=== PATIENT | male | born 1985 | race American Indian/Alaskan Native ===

== ENCOUNTER 2016-07-20 09:55 | Emergency (ER) | payer BC ==
[2016-07-20 10:04] VITALS: TEMP 97.8; O2SAT 98
--- NOTE | 2016-07-20 10:06 | C.PDOC ---
History Of Present Illness A 31 year old male presents to the ER c/o bilateral knee pain for a while now. Patient notes that the pain is sharp and intermittent that is a 6/10 and usually shifts from knee to knee or is bilateral. Patient denies headaches, fever, chills, nausea, vomiting, trauma, or any other complaints. Patient is here for X-Rays of his knees. Time Seen by Provider: 07/20/16 10:02 Chief Complaint (Nursing): Lower Extremity Problem/Injury History Per: Patient History/Exam Limitations: no limitations Onset/Duration Of Symptoms: Days Current Symptoms Are (Timing): Still Present Severity: Mild Pain Scale Rating Of: 6 Recent travel outside of the [place]: No Additional History Per: Patient Past Medical History Reviewed: Historical Data, Nursing Documentation, Vital Signs Vital Signs: Last Vital Signs Temp 97.8 F 07/20/16 10:01 Pulse 61 07/20/16 10:01 Resp 18 07/20/16 10:01 BP 132/73 07/20/16 10:01 Pulse Ox 98 07/20/16 10:51 Family History: States: Unknown Family Hx - Social History Hx Tobacco Use: No Hx Alcohol Use: No Hx Substance Use: No - Immunization History Hx Tetanus Toxoid Vaccination: No Hx Influenza Vaccination: No Hx Pneumococcal Vaccination: No Review Of Systems Except As Marked, All Systems Reviewed And Found Negative. Constitutional: Negative for: Fever, Chills, Other (Trauma) Gastrointestinal: Negative for: Nausea, Vomiting Musculoskeletal: Positive for: Leg Pain (Bilateral knee pain) Neurological: Negative for: Headache Physical Exam - Physical Exam Appears: Non-toxic, No Acute Distress Skin: Warm, Dry Head: Atraumatic, Normacephalic Eye(s): bilateral: Normal Inspection Cardiovascular: Rhythm Regular, No Murmur Respiratory: Normal Breath Sounds, No Rales, No Rhonchi, No Wheezing Extremity: Normal ROM, No Pedal Edema, No Deformity, No Swelling Neurological/Psych: Oriented x3, Normal Speech, Normal Cognition Gait: Steady ED Course And Treatment O2 Sat by Pulse Oximetry: 98 (RA) Pulse Ox Interpretation: Normal Medical Decision Making Medical Decision Making: Impression: 31 y/o c/o bilateral knee pain for a while Plans: -X-Ray of bilateral knee -Tylenol -Motrin -Reassess and disposition Disposition Counseled Patient/Family Regarding: Studies Performed, Diagnosis, Need For Followup, Rx Given - Disposition Referrals: Min Hopson DO [Primary Care Provider] - Disposition: HOME/ ROUTINE Disposition Time: 10:42 Condition: STABLE Prescriptions: Ibuprofen [Motrin] 600 mg PO TID #15 tab Instructions: Knee Pain (ED), RICE Therapy (ED) Forms: General Discharge Instructions - POA Present On Arrival: None - Clinical Impression Clinical Impression: Joint pain - Scribe Statement The provider has reviewed the documentation as recorded by the Scribe Renny burrell All medical record entries made by the Vimalibe were at my direction and personally dictated by me. I have reviewed the chart and agree that the record accurately reflects my personal performance of the history, physical exam, medical decision making, and the department course for this patient. I have also personally directed, reviewed, and agree with the discharge instructions and disposition.
[2016-07-20 11:08] VITALS: BP 129/75; PULSE 64; RESP 17
--- NOTE | 2016-07-20 11:37 | RAD ---
PROCEDURE: Bilateral Knee Radiographs. HISTORY: Bilateral knee pain 2 weeks duration. COMPARISON: None. FINDINGS: BONES: Right Knee: Normal. No fracture. Left Knee: Normal. No fracture. JOINTS: Right Knee: Normal. No osteoarthritis. Left knee: Normal. No osteoarthritis. SOFT TISSUES: Right Knee: Normal. Left Knee: Normal. JOINT EFFUSION: Right Knee: None. Left Knee: None. OTHER FINDINGS: None. IMPRESSION: No acute findings related to/accounting for the clinical presentation.
== END 2016-07-20 11:07 | disposition home or self-care (01) ==
LOC: C.ER 09:55 → SUPCPDRO 09:55 → C.ER 11:07
DX: M25.562 Pain in left knee (principal); M25.561 Pain in right knee

== ENCOUNTER 2017-01-31 13:36 | Emergency (ER) | payer BC ==
[2017-01-31 13:45] VITALS: RESP 18; TEMP 97.9
--- NOTE | 2017-01-31 14:53 | C.PDOC ---
History Of Present Illness 31 y/o male, with PMHx of childhood asthma, presents to ED for evaluation of persistent non-productive, "barking" cough for the past 2 weeks. Patient has been using OTC Robitussin without improvement. Pt admits to nasal congestion for the past several days. He denies shortness of breath, wheezing, fever, or sore throat. Patient denies history of smoking. Time Seen by Provider: 01/31/17 13:47 Chief Complaint (Nursing): Cough, Cold, Congestion History Per: Patient History/Exam Limitations: no limitations Onset/Duration Of Symptoms: Days Current Symptoms Are (Timing): Still Present Location Of Pain: None Sick Contacts (Context): None Associated Symptoms: Cough, Nasal Congestion. denies: Sore Throat, Neck Pain, Sinus Drainage Ear Symptoms: Bilateral: None Severity: Mild Additional History Per: Patient Past Medical History Reviewed: Historical Data, Nursing Documentation, Vital Signs Vital Signs: Last Vital Signs Temp 97.9 F 01/31/17 13:41 Pulse 75 01/31/17 15:18 Resp 18 01/31/17 15:18 BP 126/72 01/31/17 15:18 Pulse Ox 98 01/31/17 15:18 - Medical History PMH: Hypercholesterolemia, Migraine Family History: States: No Known Family Hx - Social History Hx Tobacco Use: No Hx Alcohol Use: No Hx Substance Use: No - Immunization History Hx Tetanus Toxoid Vaccination: No Hx Influenza Vaccination: No Hx Pneumococcal Vaccination: No Review Of Systems Except As Marked, All Systems Reviewed And Found Negative. Constitutional: Negative for: Fever, Chills ENT: Positive for: Nose Congestion. Negative for: Nose Discharge, Throat Pain Respiratory: Positive for: Cough. Negative for: Shortness of Breath, Sputum, Wheezing Skin: Negative for: Rash Physical Exam - Physical Exam Appears: Well, Non-toxic, No Acute Distress Skin: Normal Color, Warm, Dry Head: Normacephalic Eye(s): bilateral: Normal Inspection Ear(s): Bilateral: Normal Nose: Normal Oral Mucosa: Moist Throat: Normal, No Erythema, No Exudate, No Drooling Neck: Normal ROM, Supple Cardiovascular: Rhythm Regular, No Murmur Respiratory: Normal Breath Sounds, No Rales, No Rhonchi, No Wheezing, Other ( speaking in full sentences) Gastrointestinal/Abdominal: Normal Exam, Bowel Sounds, Soft, No Tenderness Extremity: Normal ROM Neurological/Psych: Oriented x3 ED Course And Treatment O2 Sat by Pulse Oximetry: 96 (RA) Pulse Ox Interpretation: Normal - Radiology CXR: Interpreted by Me, Viewed By Me CXR Interpretation: Yes: No Acute Disease. No: Infiltrates, Other (no effusion) Progress Note: CXR ordered and reviewed. Pt was given PO Prednisone. Reevaluation Time: 15:15 Reassessment Condition: Improved (Patient reassessed, is resting comfortably, in no distress. Cough has improved, CXR (-) for infiltrates. Patient is well appearing, with nrormal vitals, and he is comfortable being discharged. Rxs given for Prednisone, Tessalon and albuterol inhaler. Patient instructed to follow up with PMD/clinic in 1-2 days. He understands he should return to ED if symptoms worsen.) Disposition Counseled Patient/Family Regarding: Studies Performed, Diagnosis, Need For Followup, Rx Given - Disposition Referrals: Min Hopson DO [Staff Provider] - Disposition: HOME/ ROUTINE Disposition Time: 15:15 Condition: STABLE Additional Instructions: FOLLOW UP WITH YOUR DOCTOR IN 1-2 DAYS USE MEDICATIONS DIRECTED RETURN TO ER IF SYMPTOMS WORSEN Prescriptions: Albuterol HFA [Ventolin HFA 90 mcg/actuation (8 g)] 0.09 mg IH Q4 PRN #1 puff PRN Reason: Wheezing Benzonatate [Tessalon Perles] 100 mg PO BID PRN #15 sgl PRN Reason: Cough predniSONE [predniSONE Tab] 40 mg PO DAILY #6 tab Instructions: Bronchospasm (ED) Forms: Attune RTD (Portuguese) Print Language: SOUTH AFRICAN - POA Present On Arrival: None - Clinical Impression Clinical Impression: Bronchospasm, Bronchitis - Scribe Statement The provider has reviewed the documentation as recorded by the Vimalibleticia Camejo All medical record entries made by the Eliseo were at my direction and personally dictated by me. I have reviewed the chart and agree that the record accurately reflects my personal performance of the history, physical exam, medical decision making, and the department course for this patient. I have also personally directed, reviewed, and agree with the discharge instructions and disposition.
--- NOTE | 2017-01-31 15:03 | RAD ---
HISTORY: PERSISTENT COUGH COMPARISON: No prior. TECHNIQUE: Chest PA and lateral FINDINGS: LUNGS: Mild patchy increased markings in the right infrahilar region. Clinical correlation. PLEURA: No significant pleural effusion identified. No pneumothorax apparent. CARDIOVASCULAR: Normal. OSSEOUS STRUCTURES: No significant abnormalities. VISUALIZED UPPER ABDOMEN: Normal. OTHER FINDINGS: None. IMPRESSION: Mild patchy increased markings in the right infrahilar region. Clinical correlation.
[2017-01-31 15:18] VITALS: BP 126/72; PULSE 75
[2017-02-05 15:12] VITALS: O2SAT 96
== END 2017-01-31 15:19 | disposition home or self-care (01) ==
LOC: C.ER 13:36
DX: J40 Bronchitis, not specified as acute or chronic (principal); J98.01 Acute bronchospasm; E78.00 Pure hypercholesterolemia, unspecified